=== PATIENT | female | born 1970 | race Caucasian/White ===

== ENCOUNTER 2023-09-21 13:46 | Emergency (ER) | payer MEDICARE ==
[~2023-09-21] VITALS: Ht 154.9 cm; Wt 79.4 kg
[2023-09-21 14:34] VITALS: BP 126/79; PULSE 80; RESP 18; TEMP 97.8; O2SAT 99
[2023-09-21 14:40] VITALS: BP 117/86; PULSE 85; RESP 18; TEMP 97.8; O2SAT 99
== END 2023-09-21 14:45 | disposition home or self-care (01) ==
LOC: ER 13:46
DX: M94.0 Chondrocostal junction syndrome [Tietze] (principal)
CPT/HCPCS: 82948; 93005; 99283

== ENCOUNTER 2023-12-16 21:55 | Emergency (ER) | payer MEDICARE ==
[~2023-12-16] VITALS: Ht 154.9 cm; Wt 73.9 kg
[2023-12-16 22:30] VITALS: BP 146/76; PULSE 98; RESP 18; TEMP 99.2; O2SAT 95
[2023-12-16 23:30] VITALS: BP 152/73; PULSE 94; RESP 18; TEMP 99.2; O2SAT 95
[2023-12-16 23:30] LABS: INFLUENZA VIRUS A ANTIGEN NEGATIVE (NEG); INFLUENZA VIRUS B ANTIGEN NEGATIVE (NEG)
[2023-12-17 00:26] VITALS: BP 166/99; PULSE 96; RESP 18; TEMP 99.2; O2SAT 95
== END 2023-12-17 00:26 | disposition home or self-care (01) ==
LOC: ER 21:55
DX: U07.1 COVID-19 (principal); Z90.710 Acquired absence of both cervix and uterus; Z98.890 Other specified postprocedural states
CPT/HCPCS: 87070; 87426; 87804; 87880; 99283